=== PATIENT | female | born 1995 | race Hispanic/Latino ===

== ENCOUNTER 2023-12-21 20:24 | Emergency (ER) | payer SELFPAY ==
[2023-12-21 21:25] LABS: BASO% 0.5 % (0-3); EOS% 0.3 % (0-8); HEMATOCRIT 39.5 % (37.0-47.0); HEMOGLOBIN 13.2 g/dl (12.0-16.0); IMMATURE GRANULOCYTES 0.3 % (0.0-5.0); LYMPH% 16.7 % (15-41); MEAN CELL VOLUME 87.2 fL CALC (80.0-100.0); MEAN CORPUSCULAR HGB 29.1 pG CALC (26.0-32.0); MEAN CORPUSCULAR HGB CONC 33.4 g/dL CAL (32.0-36.0); MONO% 6.8 % (2-13); NEUT# 9.77 thou/uL (2.00-7.15); NEUT% 75.4 % (42-76); RED BLOOD COUNT 4.53 mill/uL (4.20-5.60); RED CELL DISTRI WIDTH 13.2 % (11.5-15.5)
[2023-12-21] MEDS ORDERED: AMOXICILLIN TRIHYDRATE 500 MG/CAP PO ONE (21:45)
[2023-12-21] MEDS ORDERED: AMOXICILLIN500 MG PO (21:47)
[2023-12-21 22:33] VITALS: BP 107/70
== END 2023-12-21 22:33 | disposition home or self-care (01) | DRG 153 ==
LOC: ED 20:24
PROVIDERS: Family Medicine
DX: J03.90 Acute tonsillitis, unspecified (principal); Z20.822 Contact with and (suspected) exposure to COVID-19